=== PATIENT | female | born 1965 | race Caucasian/White ===

== ENCOUNTER 2018-04-09 05:52 | Emergency (ER) | payer MEDICAID, SELFPAY ==
[~2018-04-09] VITALS: Ht 182.9 cm; Wt 79.1 kg
[2018-04-09 06:01] VITALS: BP 156/105
[2018-04-09] MEDS ORDERED: ALBUTEROL (06:07)
[2018-04-09] MEDS ORDERED: ALBUTEROL/IPRATROPIUM 2.5MG/0.5MG, 3 ML NEB ONE (06:30)
[2018-04-09] MEDS ORDERED: ALBUTEROL/IPRATROPIUM 2.5MG/0.5MG, 3 ML ONE (06:43)
== END 2018-04-09 07:10 | disposition home or self-care (01) ==
LOC: ED 06:58
DX: J45.21 Mild intermittent asthma with (acute) exacerbation (principal)
CPT/HCPCS: 71045; 93005; 94640; 99283; J7620

== ENCOUNTER 2018-04-12 08:05 | Emergency (ER) | payer MEDICAID ==
[~2018-04-12] VITALS: Ht 182.9 cm; Wt 78.6 kg
[~2018-04-12 08:05] MED LIST: ALBUTEROL
[2018-04-12 08:13] VITALS: BP 125/82
[2018-04-12] MEDS ORDERED: BUPR1FIL5 MM (08:40)
[2018-04-12] MEDS ORDERED: ALBU8.5H8 IH (08:40)
== END 2018-04-12 09:44 | disposition home or self-care (01) ==
LOC: ED 09:38
DX: S63.522A Sprain of radiocarpal joint of left wrist, initial encounter (principal); J45.909 Unspecified asthma, uncomplicated; W19.XXXA Unspecified fall, initial encounter; Y93.89 Activity, other specified; Y92.89 Other specified places as the place of occurrence of the external cause; Y99.8 Other external cause status
CPT/HCPCS: 99283

== ENCOUNTER 2019-09-22 18:40 | Emergency (ER) | payer OTHER, MEDICAID ==
[~2019-09-22] VITALS: Ht 182.9 cm; Wt 84.0 kg
[~2019-09-22 18:40] MED LIST changes: +ALBU8.5H8 IH; +BUPR1FIL5 MM
[2019-09-22 18:44] VITALS: BP 140/70
--- NOTE | 2019-09-22 19:01 | NUR ---
FIRST CONTACT WITH PT. PT STATES "I FELL BACKWARD AND I BENT MY RIGHT WRIST BACKWARD" TOOK 3 ADVIL. PT'S AOX4. RESPS EVEN AND UNLABORED. DENIES ANY OTHER SX.
--- NOTE | 2019-09-22 19:04 | NUR ---
xray in room at this time.
[2019-09-22] MEDS ORDERED: IBUPROFEN 200 MG TABLET PO ONE (19:30)
[2019-09-22] MEDS ORDERED: IBUPROFEN 200 MG TABLET ONE (19:32)
--- NOTE | 2019-09-22 19:35 | NUR ---
OPT MEDICATED PER EMAR. PT TOPLERATED WELL.
--- NOTE | 2019-09-22 19:53 | NUR ---
Patient given discharge instructions and they have confirmed that they understand the instructions. Patient ambulatory with steady gait.
== END 2019-09-22 19:54 | disposition home or self-care (01) ==
LOC: ED 19:45
DX: S53.441A Ulnar collateral ligament sprain of right elbow, initial encounter (principal); G89.11 Acute pain due to trauma; M25.531 Pain in right wrist; J45.909 Unspecified asthma, uncomplicated; F17.210 Nicotine dependence, cigarettes, uncomplicated; W01.0XXA Fall on same level from slipping, tripping and stumbling without subsequent striking against object, initial encounter; Y93.89 Activity, other specified; Y92.488 Other paved roadways as the place of occurrence of the external cause; Y99.8 Other external cause status
CPT/HCPCS: 29125; 99283